=== PATIENT | female | born 1970 | race Caucasian/White ===

== ENCOUNTER 2020-11-21 13:10 | Emergency (ER) | payer OTHER ==
[2020-11-21] MEDS ORDERED: CYCLOBENZAPRINE10 MG PO (16:05)
== END 2020-11-21 16:44 | disposition home or self-care (01) ==
LOC: FER 13:10
DX: S16.1XXA Strain of muscle, fascia and tendon at neck level, initial encounter (principal); S39.012A Strain of muscle, fascia and tendon of lower back, initial encounter; M25.531 Pain in right wrist; M25.532 Pain in left wrist; I10 Essential (primary) hypertension; Z88.8 Allergy status to other drugs, medicaments and biological substances; Z87.891 Personal history of nicotine dependence; V43.52XA Car driver injured in collision with other type car in traffic accident, initial encounter; Y92.410 Unspecified street and highway as the place of occurrence of the external cause
CPT/HCPCS: 72040; 72100